=== PATIENT | female | born 1995 | race Caucasian/White ===

== ENCOUNTER 2017-02-28 12:30 | Emergency (ER) | payer BC ==
[~2017-02-28] VITALS: Ht 157.5 cm; Wt 55.5 kg
[2017-02-28 12:37] VITALS: TEMP 98.5
[2017-02-28 14:32] VITALS: BP 110/74; PULSE 78
== END 2017-02-28 14:37 | disposition home or self-care (01) ==
LOC: COL.ER 12:30
DX: S61.217A Laceration without foreign body of left little finger without damage to nail, initial encounter (principal); W26.0XXA Contact with knife, initial encounter

== ENCOUNTER 2020-09-27 10:31 | Outpatient (RCR) | payer OTHER ==
[2021-04-16] MEDS ORDERED: COMPLETE MULTI1 TAB PO (10:26)
[2021-04-16] MEDS ORDERED: EFFEXOR-XR150 MG PO (10:27)
[2021-04-16] MEDS ORDERED: WELLBUTRIN XL150 MG PO (10:28)
== END 2020-11-28 14:37 | disposition home or self-care (01) ==
LOC: WSOH 10:31
DX: S00.83XA Contusion of other part of head, initial encounter (principal); S06.0X0A Concussion without loss of consciousness, initial encounter; Z98.890 Other specified postprocedural states; F32.9 Major depressive disorder, single episode, unspecified; Y99.0 Civilian activity done for income or pay

== ENCOUNTER 2021-04-30 16:30 | Outpatient (RCR) | payer BC ==
[2021-04-16 10:29] VITALS: BP 111/72; PULSE 88; TEMP 98.8
[2021-04-19 17:10] VITALS: BP 116/79; PULSE 93; TEMP 98.4
[2021-04-23 16:38] VITALS: BP 131/75; PULSE 98; TEMP 98.4
[~2021-04-30] VITALS: Ht 157.5 cm; Wt 70.2 kg
[~2021-04-30 16:30] MED LIST: COMPLETE MULTI1 TAB PO; EFFEXOR-XR150 MG PO; WELLBUTRIN XL150 MG PO
[2021-04-30 18:00] VITALS: BP 119/77; PULSE 69; TEMP 98.6
== END 2021-04-30 18:01 | disposition home or self-care (01) ==
LOC: EUO 16:30
DX: Z23 Encounter for immunization (principal); Z20.3 Contact with and (suspected) exposure to rabies

== ENCOUNTER 2022-04-14 14:24 | Inpatient (IN) | payer BC ==
[~2022-04-14] VITALS: Ht 157.5 cm; Wt 76.4 kg
[2022-04-14 17:32] LABS: HEMATOCRIT 37.1 % (37.0-47.0); HEMOGLOBIN 12.4 g/dl (12.5-16.0); MEAN CELL VOLUME 87 fl (80.0-100.0); MEAN CORPUSCULAR HEMOGLOBIN 29 pg (27-31); MEAN CORPUSCULAR HGB CONC 33 g/dl (33.0-37.0); MEAN PLATELET VOLUME 10.3 fl (7.4-10.4); PLATELET COUNT 288 K/mm3 (130-400); RED BLOOD COUNT 4.28 M/mm3 (4.10-5.30); REDCELL DISTRIBUTION WIDTH-CV 12.5 % (11.5-14.5)
[2022-04-14 17:34] LABS: ALBUMIN 3.9 gm/dL (3.5-5.0); BILIRUBIN,TOTAL 0.5 mg/dL (0.2-1.2); CALCIUM 9.8 mg/dL (8.4-10.2); CREATININE, serum 0.73 mg/dL (0.57-1.11); POTASSIUM 3.6 mmol/L (3.5-4.5); TOTAL PROTEIN 7.1 gm/dL (6.2-8.1)
[2022-04-14 18:11] LABS: BAND 11 % (0-10); BASOPHIL 1 % (0-2); EOSINOPHIL 1 % (0-4); LYMPHOCYTE 12 % (20.0-51.0); NEUTROPHILS 60 % (42.0-75.2)
[2022-04-14 18:12] LABS: PLATELET ESTIMATE NORMAL (NORMAL)
[2022-04-14] MEDS ORDERED: ADDERALL XR25 MG PO (19:36)
[2022-04-14] MEDS ORDERED: EFFEXOR-XR150 MG PO (19:36)
[2022-04-14 21:46] VITALS: BP 144/77; PULSE 110; TEMP 98.9
[2022-04-14 23:52] VITALS: BP 135/67; PULSE 103; TEMP 98.9
[2022-04-15 03:38] VITALS: BP 120/73; PULSE 87; TEMP 98.3
[2022-04-15 06:25] LABS: BASO # 0.1 K/mm3 (0.0-0.2); BASO % 0.8 % (0.0-2.0); EOS # 0.4 K/mm3 (0.0-0.7); EOS % 5.2 % (0.0-4.0); GRAN # 3.5 K/mm3 (1.4-6.5); GRAN % 48.1 % (42.2-75.2); LYMPH # 2.2 K/mm3 (1.2-3.4); LYMPH % 29.8 % (20.0-51.0); MEAN CELL VOLUME 88 fl (80.0-100.0); MEAN CORPUSCULAR HGB CONC 33 g/dl (33.0-37.0); MEAN PLATELET VOLUME 10.5 fl (7.4-10.4); MONO # 1.1 K/mm3 (0.1-0.6); MONO % 15.5 % (1.7-9.3); PLATELET COUNT 223 K/mm3 (130-400); RED BLOOD COUNT 3.54 M/mm3 (4.10-5.30); REDCELL DISTRIBUTION WIDTH-CV 12.7 % (11.5-14.5)
[2022-04-15 06:42] LABS: HEMATOCRIT 31.3 % (37.0-47.0); MEAN CORPUSCULAR HEMOGLOBIN 29 pg (27-31)
[2022-04-15 06:43] LABS: HEMOGLOBIN 10.3 g/dl (12.5-16.0)
[2022-04-15 07:09] LABS: CALCIUM 7.8 mg/dL (8.4-10.2); CREATININE, serum 0.64 mg/dL (0.57-1.11); POTASSIUM 3.8 mmol/L (3.5-4.5)
[2022-04-15 07:51] VITALS: BP 120/58; PULSE 87; TEMP 98.1
--- NOTE | 2022-04-15 08:00 | NUR ---
PATIENT ORIENTED X4 BUT DROWSY THIS AM. PATIENT RECEIVED PRN PAIN MEDS BEFORE SHIFT CHANGE FOR BILATERAL SHOULDER PAIN. VSS ON TELE. PATIENT REPORTS SHE PRESENTED TO ER, AFTER SEEING HER PCP, AND IMAGES WERE OBTAINED AT BOTH FACILITIES. IMAGES IDENTIFY BILATERAL SHOULDER DISLOCATIONS AND LEFT HUMERUS FX, SLINGS INPLACE TO BUE. NOTED SIGNIFICANT SWELLING IN LUE. PATIENT'S FATHER ON HER PHONE AND PLACED ON SPEAKER, DAUGHTER CONSENTING TO HAVE FATHER INVOLVED IN HER CARE AND GAVE HIM PRIVACY PASS CODE. NURSING MADE SURE PATIENT HAS HER PASSCODE THIS AM AND TALKED WITH PATIENT'S DAD WHO EXPRESSED SEVERAL CONCERNS. NURSING TOOK CONCERNS TO SCRAP BURNER AND CRUCIBLE PACKER. ATTEMPTED TO CALL CNO, NO ANSWER. NURSING ALSO INFORMED ATTENDING HOSPITALIST TEAM AND OFFERED, IF PATIENT CONSENTS, TO HAVE FATHER INCLUDED IN TEAM ROUNDING. PATIENT'S FATHER WAS APPRECIATIVE AND THANKED NURSING FOR FOLLOWING UP ON VOICED CONCERNS AND MAKING SURE BOTH PATIENT AND FATHER WERE INCLUDED IN TEAM ROUNDING/CARE PLAN. PATIENT'S FATHER LAST REQUEST WAS TO HAVE AN ORTHO PROVIDER AT [facility] CONSULTED HE HAS WORKED WITH THEM FOR A NUMBER OF YEARS. NOTIFIED ATTENDING WHO WILL ADDRESS THIS REQUEST. HEAD TO TOE ASSESSMENT NOW COMPLETE, SEE SHIFT ASSESSMENT. AM MEDS GIVEN WITH SIPS. CURRENTLY NPO FOR POSSIBLE SURGICAL INTERVENTION. IV FLUIDS INFUSING INTO LEFT HAND. [employer] SUPPLIES IN ROOM AND EXPLAINED TO PATIENT, WILL OBTAIN WHEN PATIENT VOIDS. SEIZURE PRECAUTIONS INPLACE, PATIENT DENIES ANY HX OF SEIZURES. CONSULTS FOR ORTHO AND NEUROLOGY, SEE PROGRESS NOTES/ORDERS. PATIENT RESTING UP IN BED WITH CALL LIGHT IN REACH. PATIENT NOW TALKING WITH HER FATHER ON PHONE, RESPECTED PATIENT'S PRIVACY. NO OTHER NEEDS AT THIS TIME.
--- NOTE | 2022-04-15 09:55 | NUR ---
EEG was ordered. It can not get performed because we do not have an equipment to perform this until end of April.
--- NOTE | 2022-04-15 09:59 | NUR ---
Initial visit; Patient was receptive to Roll Plugger Machine Operator keeping her in her prayers. Physician came in so Roll Plugger Machine Operator will return another time hopefully to say a prayer with Cathering who is in a lot of pain.
--- NOTE | 2022-04-15 10:00 | NUR ---
CALLED FOR ORTHO CONSULT PER PATIENT'S FATHER REQUEST.
--- NOTE | 2022-04-15 10:20 | NUR ---
PATIENT TALKING WITH RISK MANAGEMENT
--- NOTE | 2022-04-15 10:30 | NUR ---
PATIENT REPORTS INCREASED DISCOMFORT IN BUE AND REQUESTING PAIN PILL. GAVE PRN OXYCODONE, SEE MAR.
--- NOTE | 2022-04-15 11:20 | NUR ---
PARCEL POST OFFICER ON UNIT TO INTERVIEW PATIENT.
--- NOTE | 2022-04-15 11:50 | NUR ---
PATIENT TOLD HOSPITALIST SHE "THINKS SHE CAN PEE NOW". BAND SHOVER STILL AT BEDSIDE INTERVIEWING PATIENT. PCT WILL COME BACK TO HELP HER WHEN THEY ARE DONE, PATIENT TO CALL.
--- NOTE | 2022-04-15 12:15 | NUR ---
POLICE OFFICE DONE WITH INTERVIEW. PATIENT 1 ASSIST TO BATHROOM, UDS OBTAINED AND SENT TO LAB BY RN.
[2022-04-15 12:20] LABS: COLLECTION METHOD CLEAN CATCH
[2022-04-15 12:31] LABS: MUCOUS Present (NOT PRESENT); SQUAMOUS EPITHELIAL 0-2 /hpf (0-10); URINE BACTERIA Rare /hpf (NONE SEEN)
[2022-04-15 12:32] LABS: URINE APPEARANCE Clear (CLEAR/HAZY); URINE COLOR Yellow (YELLOW); URINE GLUCOSE Negative (NEGATIVE); URINE KETONE 1+ (NEGATIVE); URINE PROTEIN(semi-quant) Negative (NEGATIVE)
--- NOTE | 2022-04-15 12:32 | NUR ---
LEATHA NURSE AND ER DIRECTOR NOW AT BEDSIDE.
[2022-04-15 12:33] LABS: URINE BLOOD Negative (NEGATIVE); URINE NITRATE Negative (NEGATIVE); URINE UROBILINOGEN 0.2 (NEGATIVE)
[2022-04-15 12:34] LABS: TRICYCLIC ANTIDEPRESS URINE NEGATIVE
[2022-04-15 12:35] VITALS: BP 134/73; PULSE 100; TEMP 98.7
--- NOTE | 2022-04-15 14:40 | NUR ---
PATIENT'S FATHER IS REQUESTING TO SPEAK WITH BEFORE TRANSFER TO ANOTHER FACILITY. NOTIFIED AND GIVEN CONTACT INFO. SPOKE WITH THE PATIENT'S FATHER.
--- NOTE | 2022-04-15 14:41 | NUR ---
ELBA/KEN NURSE NOW DONE WITH EVALUATION. CT NOW ON THEIR WAY UP TO GET PATIENT FOR ORDERED CT. HOSPITALIST WORKING ON TRANSFER
--- NOTE | 2022-04-15 14:50 | NUR ---
NURSING INQUIRED ABOUT PAIN AND OFFERED PAIN MEDS, PATIENT DOES WANT SOMETHING FOR PAIN. GAVE PRN OXYCODONE. PATIENT TALKING WITH FATHER ON PHONE. CT ON THEIR WAY UP GET PATIENT. PATIENT'S FATHER EXPRESSING CONCERNS ABOUT THE AMOUNT OF RADIATION PATIENT IS EXPOSED TO, DISCUSSED WITH HOSPITALIST DURING ROUNDS. NURSING CONFIRMED WITH HOSPITALIST TEAM WHO CLARIFIED, THEY MEANT THERE WAS NO NEED TO DO A CT HERE IF [facility] WAS GOING TO REQUIRE A CT/IMAGINING UPON ADMISSION TO THEIR FACILITY AND EXPOSE HER TO TWO ADDITIONAL IMAGINING TEST AND ADDITIONAL RADIATION. HOSPITALIST STILL MAKING ROUNDS AND IS UNABLE TO TALK WITH FATHER ABOUT THIS AGAIN AT THIS TIME. CT TECHS SENT AWAY. NO IMAGING OBTAINED AT THIS TIME.
--- NOTE | 2022-04-15 15:15 | NUR ---
HOSPITALIST AT BEDSIDE TO TALK WITH PATIENT, AND HER FATHER IF SHE WANTS TO CALL HIM, ABOUT BEING ACCEPTED TO [facility] FOR FURTHER EVAL/TREATMENT FROM A TRAUMA ORTHO SURGEON. SHOPFITTER ALSO NOTIFIED AT THIS TIME.
[2022-04-15 16:14] VITALS: BP 126/68; PULSE 103; TEMP 98.7
--- NOTE | 2022-04-15 17:00 | NUR ---
ATTEMPTED TO CALL REPORT X2, ON NUMBER PROVIDED BY [facility] FOR [facility]PORT, NO ANSWER AND NO VOICEMAIL OPTION.
--- NOTE | 2022-04-15 17:10 | NUR ---
EMS HERE TO TRANSFER PATIENT TO [facility]. BROTHER WAS AT BEDSIDE BRIEFLY AROUND 1630, NO FAMILY AT BEDSIDE AT THIS TIME. TRANFER PACKET GIVEN TO EMS. PATIENT DISCHARGING WITH LEFT HAND IV AND NS INFUSING, EMS TAKING OVER CARE.
--- NOTE | 2022-04-15 17:45 | NUR ---
[facility] NURSE CALLED BACK FOR REPORT, ATTEMPT WAS MADE X3, REPORT NOW GIVEN. PATIENT IN ROUTE WITH EMS.
== END 2022-04-15 17:05 | disposition short-term general hospital (02) | DRG 563 ==
LOC: COL.ER 14:24 → SURG 19:16
PROVIDERS: Nurse Practitioner Family; Physician Assistant; ADMIT Hospitalist
PROC: 0RSJXZZ Reposition Right Shoulder Joint, External Approach (ICD-10-PCS; principal; 2022-04-14)
DX: S42.202A Unspecified fracture of upper end of left humerus, initial encounter for closed fracture (principal); S43.004A Unspecified dislocation of right shoulder joint, initial encounter; R41.2 Retrograde amnesia; F90.9 Attention-deficit hyperactivity disorder, unspecified type; F32.A Depression, unspecified; D72.829 Elevated white blood cell count, unspecified; D64.9 Anemia, unspecified; W18.39XA Other fall on same level, initial encounter; Y93.89 Activity, other specified; Z91.038 Other insect allergy status; Y92.89 Other specified places as the place of occurrence of the external cause
CPT/HCPCS: J1170; J2270; J2405; J2704; J3010; J7030